=== PATIENT | female | born 1985 | race Caucasian/White ===

== ENCOUNTER 2016-07-12 10:26 | Day surgery (SDC) | payer MEDICAID ==
[~2016-07-12] VITALS: Ht 167.6 cm; Wt 95.3 kg
[~2016-07-12 10:26] MED LIST: CLARITIN10 M1 PO; COLACE100 MG PO; FENOFIBRATE48 MG PO; FERR SULFATE325 MG PO; IBUPROFEN600 MG PO; JUNEL PO; KETOCONAZOLE21 EX; KRISTALOSE10 GM PO; LAMICTAL200 M1 PO; MUPIROCIN2 % EX; OXCARBAZEPINE300 MG PO; POLYETH GLYC3350 NF PO; RANITIDINE150 M1 PO; SIMVASTATIN40 MG PO; TENORMIN PO; TOPAMAX200 M1 PO; TOPIRAMATE ER200 MG PO; TORSEMIDE10 MG PO; VITAMIN B-121000 MC1 SL
[2016-07-12 13:41] VITALS: BP 125/76
== END 2016-07-12 13:45 | disposition home or self-care (01) | DRG 379 ==
LOC: ENDO 10:26 → ORM 18:10 → ENDO 18:10 → ORM 18:30
PROVIDERS: ATTEND Internal Medicine Gastroenterology
PROC: 0DJD8ZZ Inspection of Lower Intestinal Tract, Via Natural or Artificial Opening Endoscopic (ICD-10-PCS; principal; 2016-07-12)
DX: K62.5 Hemorrhage of anus and rectum (principal); I10 Essential (primary) hypertension; K62.89 Other specified diseases of anus and rectum; D50.9 Iron deficiency anemia, unspecified; K44.9 Diaphragmatic hernia without obstruction or gangrene; K59.00 Constipation, unspecified; K64.4 Residual hemorrhoidal skin tags; K64.8 Other hemorrhoids; G40.909 Epilepsy, unspecified, not intractable, without status epilepticus; K21.9 Gastro-esophageal reflux disease without esophagitis; E78.00 Pure hypercholesterolemia, unspecified; Z86.010 Personal history of colon polyps